=== PATIENT | female | born 1970 | race Caucasian/White ===

== ENCOUNTER 2019-07-14 07:04 | Day surgery (SDC) | payer OTHER ==
[2019-07-13 17:39] VITALS: BMI 30.7
[2019-07-14] MEDS ORDERED: Fentanyl 100 MCG/2 ML VIAL ONE ×3 (07:12→10:24)
[2019-07-14] MEDS ORDERED: AFRIN NASAL MIST 15 ML BOT ONE ×2 (07:37→08:28)
[2019-07-14] MEDS ORDERED: EPINEPHrine 1 MG/ML AMP ONE (08:28)
[2019-07-14] MEDS ORDERED: Lidocaine 1% w/Epinephrine 1:100K 20 ML VIAL ONE (08:28)
[2019-07-14] MEDS ORDERED: Ondansetron HCl/PF 4 MG/2 ML Vial IVP PRN (10:18)
[2019-07-14] MEDS ORDERED: Promethazine HCl 25 MG/ML VIAL IM/IV PRN (10:18)
[2019-07-14] MEDS ORDERED: Non-Formulary Medication 1 EACH PO PRN (10:18)
--- NOTE | 2019-07-14 10:59 | OP ---
DATE OF PROCEDURE: 07/14/2019 PREOPERATIVE DIAGNOSES: 1. Deviated septum. 2. Chronic maxillary sinusitis. 3. Obstructive hypertrophic inferior turbinates. 4. Left melissa bullosa. POSTOPERATIVE DIAGNOSES: 1. Deviated septum. 2. Chronic maxillary sinusitis. 3. Obstructive hypertrophic inferior turbinates. 4. Left melissa bullosa. PROCEDURES PERFORMED: 1. Left nasal endoscopy with resection of melissa bullosa. 2. Right maxillary antrostomy with removal of tissue. 3. Right total ethmoidectomy. 4. Right frontal sinusotomy. 5. Septoplasty. DESCRIPTION OF PROCEDURE: LEFT NASAL ENDOSCOPY WITH RESECTION OF MELISSA BULLOSA: The melissa bullosa was identified and entered with a sickle blade. The lateral aspect of the melissa bullosa was meticulously resected while leaving the medial most aspect to form the new middle turbinate. Attention was made not to violate the mucosa. The straight biting punches and micro-debrider were used to remove shrouds of mucosa and bony debris. RIGHT MAXILLARY ANTROSTOMY WITH REMOVAL OF TISSUE: The uncinate was then identified and the extent of the uncinate was appreciated by out-fracturing the uncinate with the ball-tip probe. We then used the sickle blade to disarticulate the uncinate from the lateral nasal wall. This was then removed with straight biting and upbiting punches with the remaining shrouds of mucosa and bony septum removed with the micro-debrider. The natural os of the maxillary sinus was then identified and enlarged with the maxillary punches and back biting forceps. RIGHT TOTAL ETHMOIDECTOMY: The anterior face of the ethmoid bulla was entered and with the micro-debrider, dissection continued posteriorly to the ground lamella. The limits of dissection included the insertion of the middle turbinate, medial orbital wall, and base of skull. We similarly identified the frontal recess and removed shrouds of bone and debris in that region to obtain patency into the agger nasi region and frontal recess. We then entered the ground lamella and its anteroinferior aspect and proceeded posteriorly, opening the posterior ethmoid air-cell system. Again, the limits of dissection included the base of skull and medial orbital wall. RIGHT FRONTAL SINUSOTOMY: Following the ethmoidectomy, we then turned our attention to the frontal nasal recess. The agger nasi cells were addressed and the frontal recess was exposed. The natural opening to the frontal sinus was identified. At this point, any obstructing shrouds of mucosa and bony fragments were removed with a curved microdebrider. The wound was then examined and found to be free of any obstructing debris. We then turned our attention to the contralateral side and performed a similar procedure again under endoscopic visualization using a 45-degree scope. We were able to visualize the frontal recess. Obstructing shrouds of mucosa and bone were removed with a microdebrider. The natural os of frontal sinus was identified and enlarged and irrigated. At this point, the frontal sinusotomy was completed and we turned to the next area of concern. SEPTOPLASTY: After local anesthesia was infiltrated into the submucoperichondrial plane, a standard Walker incision was made with a #15 blade down to the level of the septal cartilage. The caudal elevator was used to elevate the mucoperichondrium from the underlying cartilage. We then proceeded beyond the bony cartilaginous junction and elevated the bony periosteum as well. Great attention was paid to the spur to prevent rent formation in the septal flap. A transcartilaginous incision was then made, while preserving an adequate dorsal and caudal cartilaginous strut for tip support. The deformed cartilage was removed and disarticulated from the bony cartilaginous junction and maxillary crest. This was placed in saline and would later be crushed and returned to the mucoperichondrial envelope. We then elevated the contralateral periosteum from the bony cartilaginous region and removed the deformed portions of the bone and bony spurs. The cartilage was then crushed and placed back into the mucoperichondrial envelope and the mucosa was re-approximated with a quilting stitch composed of rapidly absorbent gut suture. The Walker incision was also closed with interrupted gut suture. At the completion of the case, Barakat splints were placed and suture secured to the caudal septum. Job ID: [id number]
[2019-07-14] MEDS ORDERED: PROPOFOL 200 MG/20 ML VIAL ONE (11:34)
[2019-07-14] MEDS ORDERED: Dexamethasone 20 MG/5 ML VIAL ONE (11:34)
[2019-07-14] MEDS ORDERED: Ondansetron PF 4 MG/2 ML Vial ONE (11:34)
[2019-07-14] MEDS ORDERED: Succinylcholine Chloride 20 MG/ML 10 ml SYRINGE FS ONE (11:34)
[2019-07-14] MEDS ORDERED: Lidocaine 1% PF 5 ML VIAL ONE (11:34)
[2019-07-14] MEDS ORDERED: HYDROcodone/Acetaminophen 5/325 mg Tablet ONE (12:51)
== END 2019-07-14 13:39 | disposition home or self-care (01) ==
LOC: SDC 07:04
PROVIDERS: ATTEND Specialist
PROC: 09BL8ZZ Excision of Nasal Turbinate, Via Natural or Artificial Opening Endoscopic (ICD-10-PCS; principal; 2019-07-14)
PROC: 09BS8ZZ Excision of Right Frontal Sinus, Via Natural or Artificial Opening Endoscopic (ICD-10-PCS; principal; 2019-07-14)
PROC: 099Q8ZZ Drainage of Right Maxillary Sinus, Via Natural or Artificial Opening Endoscopic (ICD-10-PCS; principal; 2019-07-14)
PROC: 09BM8ZZ Excision of Nasal Septum, Via Natural or Artificial Opening Endoscopic (ICD-10-PCS; principal; 2019-07-14)
DX: J32.0 Chronic maxillary sinusitis (principal); J34.2 Deviated nasal septum; J34.3 Hypertrophy of nasal turbinates; J34.89 Other specified disorders of nose and nasal sinuses; Z79.899 Other long term (current) drug therapy; Z88.0 Allergy status to penicillin
CPT/HCPCS: J0171; J1100; J2001; J2405; J2704; J3010